=== PATIENT | male | born 1990 | race Caucasian/White ===

== ENCOUNTER 2025-02-15 16:33 | Emergency (ER) | payer SELFPAY ==
[2025-02-15 16:35] VITALS: BP 164/81; PULSE 72; RESP 16; TEMP 36.7; O2SAT 97; BMI 31.1
--- NOTE | 2025-02-15 16:47 | XRR_ITS ---
PROCEDURE INFORMATION: Exam: XR Left Forearm Exam date and time: 02/15/2025 4:55 PM Age: 34 years old Clinical indication: Injury or trauma; Other: Punctured by piece of metal; Laceration; Arm, lower; Injury details: PT arrives pov for injury to left arm, he states earlier today he was working on a tractor when a piece of metal punctured his left arm, PT has swelling to lower left arm and bleeding is controlled TECHNIQUE: Imaging protocol: Radiologic exam of the left forearm. Views: 2 views. COMPARISON: No relevant prior studies available. FINDINGS: Bones/joints: Normal mineralization and alignment. No evidence of acute fracture or dislocation. Soft tissues: 2 mm metallic hyperdensity projecting in the soft tissues over the lateral aspect of the mid to distal radius just deep to soft tissue likely reflecting small retained foreign body. XR/XR forearm LT 2V [id number] IMPRESSION: 1. No evidence of acute fracture or dislocation. 2. 2 mm metallic hyperdensity projecting in the soft tissues over the lateral aspect of the mid to distal radius just deep to soft tissue likely reflecting small retained foreign body.
--- NOTE | 2025-02-15 16:49 | W.ED.WOUNDLC ---
HPI - Wound/Laceration General: Chief Complaint: Wound/Laceration Stated Complaint: lt arm lac Time Seen by Provider: 02/15/25 16:43 Source: patient Mode of arrival: ambulatory Limitations: no limitations History of Present Illness: 34-year-old male states that he is working on his tractor piece of his children came back and hit him on the left forearm. He has some pain and swelling to his left forearm had some slight bleeding no laceration he is concerned he may have a foreign body in his arm states pain is minimal at this time Associated symptoms: Denies chills, fever(s), nausea or vomiting Related Data Previous Rx's ?Medication ?Instructions ?Recorded levetiracetam 500 mg tablet 500 mg PO BID #60 tabs 10/15/19 (Keppra) amoxicillin 500 mg-potassium 1 tab PO BID #14 tabs 02/15/25 clavulanate 125 mg tablet (Augmentin) Allergies Allergy/AdvReac Type Severity Reaction Status Date / Time No Known Allergies Allergy Unverified 10/15/19 10:46 Review of Systems Const: Denies: fever(s), chills, body aches or change in appetite ENMT: Denies: throat pain or dental pain Card: Denies: chest pain Resp: Denies: dyspnea GI: Denies: abdominal pain, nausea, vomiting or diarrhea Musc: Reports: extremity pain; Denies: neck pain or back pain Skin/Breast: Denies: rash Neuro: Denies: headache(s) or weakness in extremities PFSH ED PFSH: Medical History (Updated 02/15/25 @ 17:08 by Gabriel Cummings MD) Blind left eye Seizure Surgical History (Updated 10/15/19 @ 10:56 by Jen Chaidez DO) History of foot operation Family History Other Cancer Diabetes Social History Smoking and tobacco/nicotine status: former use of tobacco/nicotine Alcohol intake: current Alcohol intake frequency: holidays/special occasions only Substance/Drug Use: never Physical Exam Const: COMMON NORMALS: no acute distress, patient oriented x3 and healthy appearing HENMT: COMMON NORMALS: normocephalic and atraumatic HEAD & SCALP: normocephalic and atraumatic Eye: COMMON NORMALS: conjunctivae normal CONJUNCTIVA: Yes conjunctivae normal Neck/C-Spine: COMMON NORMALS: full ROM and supple Chest: COMMONS NORMALS: normal inspection of the chest Resp: COMMON NORMALS: normal respiratory effort Cardio: COMMON NORMALS: regular rate RATE: regular rate Extremity: COMMON NORMALS: full ROM NARRATIVE EXTREMITY EXAM: Swelling tenderness to the left distal forearm no large laceration at this time Neuro: COMMON NORMALS: patient oriented x3, moves all extremities and no focal motor deficits Psych: COMMON NORMALS: mental status grossly normal, Normal thought process present and cooperative THOUGHT PROCESS: Normal thought process present Skin: COMMON NORMALS: no rashes or lesions noted and no wounds GENERAL SKIN EXAM: no rashes or lesions noted Course Vital Signs: Vital signs: Vital Signs Temperature 98.0 F 02/15/25 16:35 Pulse Rate 72 02/15/25 16:35 Respiratory Rate 16 02/15/25 16:35 Blood Pressure 164/81 02/15/25 16:35 Pulse Oximetry 97 02/15/25 16:35 Oxygen Delivery Me thod Room Air 02/15/25 16:35 MDM - Wound/Laceration Medical Decision Making Patient presents here with foreign body in left forearm foreign body appears to be deep and small will place on Augmentin we will have him follow-up with orthopedics for possible removal no laceration here stable for discharge Medical Records I reviewed the patient's medical records. XR interpretation done by ED provider, pending radiology final review ED provider radiology interpretation(s): xr l forearm: fb noted Discharge Plan Discharge Patient Disposition: Home Clinical Impression: Foreign body (FB) in soft tissue Condition: Stable Prescriptions: New amoxicillin-pot clavulanate [Augmentin] 500-125 mg tablet 1 tab PO BID Qty: 14 0RF No Action levetiracetam [Keppra] 500 mg tablet 500 mg PO BID Qty: 60 0RF Discharge Orders: Discharge ED (Routine); Ordered 02/15/25 Ordered By: Gabriel Cummings Referrals: [email or web address] [Other] Jeremiah Ramsay DO [Physician, Orthopedics] - 4-7 days Jen Chaidez DO [Primary Care Provider, Family Practice] Discharge Diet: Advance as tolerated Discharge Activity: Resume usual activity Patient Instructions: Soft Tissue Foreign Body (ED) Print Language: Estonian Coding Level of Care Code ED [employer] Technician for Yanna Summers
[2025-02-15] MEDS: tetanus-dipt-pertussis 0.5 mL SDV IM (16:54)
--- NOTE | 2025-02-16 09:27 | DCPLANNER ---
Message sent to Ortho for follow up- Patient presents here with foreign body in left forearm foreign body appears to be deep and small will place on Augmentin we will have him follow-up with orthopedics for possible removal no laceration here stable for discharge.
== END 2025-02-15 17:13 | disposition home or self-care (01) ==
PROVIDERS: Emergency Provider Emergency Medicine; PCP Family Medicine
DX: M79.5 Residual foreign body in soft tissue (principal); Z87.891 Personal history of nicotine dependence
CPT/HCPCS: 73090; 90471; 90715; 99283